=== PATIENT | male | born 1955 | race Hispanic/Latino ===

== ENCOUNTER 2016-09-13 15:58 | Outpatient (CLI) | payer OTHER ==
--- NOTE | 2016-09-14 07:25 | XRay Report ---
LUMBOSACRAL SPINE, 3 VIEWS: History: Back pain Findings: No comparison. Osteopenia is suspected. Mild degenerative disc disease and facet arthropathy are identified at all levels. There is no evidence for displaced fracture, malalignment or bone lesion. Mild degenerative changes at the SI joints. Impression: Osteopenia. Multilevel lumbar spondylosis. No acute process is noted on x-ray.
== END 2016-09-13 15:59 | disposition home or self-care (01) ==
LOC: SPVIMAG 15:58
PROVIDERS: ATTEND Family Medicine
DX: M51.37 Other intervertebral disc degeneration, lumbosacral region (principal); M12.88 Other specific arthropathies, not elsewhere classified, other specified site
CPT/HCPCS: 72100